=== PATIENT | male | born 1965 | race Caucasian/White ===

== ENCOUNTER 2016-04-21 10:13 | Outpatient (CLI) | payer OTHER | END 2016-04-21 10:14 | disposition home or self-care (01) | DX: R07.89 Other chest pain (principal); I44.7 Left bundle-branch block, unspecified; I51.7 Cardiomegaly ==

== ENCOUNTER 2016-05-27 15:36 | Outpatient (CLI) | payer OTHER | END 2016-05-27 15:37 | disposition home or self-care (01) | DX: I44.7 Left bundle-branch block, unspecified (principal); I44.0 Atrioventricular block, first degree; Q21.1 Atrial septal defect; R07.89 Other chest pain; I10 Essential (primary) hypertension; E78.5 Hyperlipidemia, unspecified; G47.33 Obstructive sleep apnea (adult) (pediatric); R00.2 Palpitations ==

== ENCOUNTER 2016-06-03 09:08 | Outpatient (CLI) | payer OTHER | END 2016-06-03 09:09 | disposition home or self-care (01) | DX: G47.10 Hypersomnia, unspecified (principal); G47.8 Other sleep disorders; R06.83 Snoring ==

== ENCOUNTER 2016-09-20 16:14 | Outpatient (CLI) | payer OTHER ==
--- NOTE | 2016-09-22 01:41 | MRI Report ---
EXAM: MRI LUMBAR SPINE WITHOUT CONTRAST EXAM DATE: 09/20/2016 05:33 PM. CLINICAL HISTORY: Subacute on chronic back pain, worse on the left involving the left buttock/hip. COMPARISON: Lumbar spine radiographs from 02/08/2015. TECHNIQUE: Multiplanar, multisequence T1-weighted and fluid-sensitive sequences of the lumbar spine f rom the lower half of T11 to S1 without contrast. Other: None. FINDINGS: Spinal Cord: The conus terminates at L1. No signal abnormality in the visualized spinal cord. Alignment: There is no spondylolisthesis. Bone Marrow: Five rra-obd-ouieboo lumbar vertebral bodies are confirmed on the radiographs. No abnorm al bone marrow edema is identified. Small chronic Schmorl's nodes are noted from T11-T12 through L3-L 4. Disk Levels/Facets: Abnormal edema is seen within the interspinous ligaments from L1-L2 through L5-S1, likely representin g bursitis. T11-T12: Unremarkable on sagittal images. T12-L1: There is mild disk bulge with mild bilateral facet arthropathy. However, there is no spinal c anal or foraminal stenosis. L1-L2: There is mild disk bulge with mild bilateral facet arthropathy. This results in mild spinal ca nal stenosis and mild bilateral foraminal narrowing. L2-L3: A disk bulge, ligamentum flavum infolding, facet arthropathy, and congenitally short pedicles result in moderate spinal canal stenosis. There is mild bilateral foraminal narrowing. Trace fluid is noted in the facet joints. L3-L4: A disk bulge is present with a superimposed large central protrusion measuring 6 x 15 mm (imag e 16, series 601) resulting in severe spinal canal stenosis. Bilateral facet arthropathy results in m ild bilateral foraminal narrowing. L4-L5: A disk bulge is present with central and right lateral annular fissures. There is moderate theresa ateral facet arthropathy with fluid in the bilateral facet joints. Superimposed ligamentum flavum inf olding results in mild spinal canal stenosis. There is moderate left and mild right foraminal narrowi ng. L5-S1: Mild bilateral facet arthropathy is present resulting in mild left foraminal narrowing. The ri ght foramen and spinal canal are patent. Musculature: Normal. No edema or fatty atrophy. Other: The visualized pelvic cavity is unremarkable. IMPRESSION: 1. Severe spinal canal stenosis at L3-L4 due to degenerative disk changes, facet arthropathy, and lig amentum flavum infolding. 2. Moderate spinal canal stenosis at L2-L3 due to similar-appearing degenerative changes. 3. Fluid in the bilateral facet joints at L2-L3 and L4-L5 may represent synovitis. 4. Edema in the interspinous ligaments throughout the lumbar spine is suggestive of bursitis. Comment: The following findings are so common in adults without low back pain that while we report th eir presence, they must be interpreted with caution and in the context of the clinical situation. (Re rachid Garrison et al, Spine 2001) Prevalence of findings in patients without low back pain: Disk degeneration (any evidence): 92% Disk desiccation/T2 signal loss: 83% Disk height loss: 56% Disk bulge: 64% Disk protrusion: 32% Annular tear/high intensity zone: 38% [facility] Referring Provider Line: [phone] SITE ID: [id number]
== END 2016-09-20 16:15 | disposition home or self-care (01) ==
LOC: DI 16:14
PROVIDERS: ATTEND Family Medicine
DX: M51.36 Other intervertebral disc degeneration, lumbar region (principal); M47.896 Other spondylosis, lumbar region; M48.06 Spinal stenosis, lumbar region; M25.48 Effusion, other site; R60.0 Localized edema; M54.5 Low back pain
CPT/HCPCS: 72148

== ENCOUNTER 2017-01-03 12:22 | Outpatient (CLI) | payer OTHER | END 2017-01-03 12:23 | disposition home or self-care (01) | LOC: RT 12:22 | PROVIDERS: ATTEND Orthopaedic Surgery | DX: Z01.818 Encounter for other preprocedural examination (principal) ==

== ENCOUNTER 2018-12-02 08:00 | Outpatient (CLI) | payer OTHER ==
[2018-12-02 12:38] LABS: BASOPHILS # (AUTO) 0.1 10^3/uL (0.0-0.1); EOSINOPHILS # (AUTO) 0.2 10^3/uL (0.0-0.7); EOSINOPHILS % (AUTO) 3.6 %; HGB - HEMOGLOBIN 14.9 g/dL (14.0-18.0); LYMPHOCYTES # (AUTO) 1.7 10^3/uL (1.5-3.5); LYMPHOCYTES % (AUTO) 33.1 %; MEAN CORPUSCULAR HEMOGLOBIN 32.3 pg (27.0-31.0); MEAN CORPUSCULAR HGB CONC 33.9 g/dL (32.0-36.0); MEAN CORPUSCULAR VOLUME 95.2 fL (80.0-94.0); MEAN PLATELET VOLUME 9.3 fL (7.4-11.4); MONOCYTES # (AUTO) 0.5 10^3/uL (0.0-1.0); MONOCYTES % (AUTO) 9.4 %; NEUTROPHILS # (AUTO) 2.6 10^3/uL (1.5-6.6); NEUTROPHILS % (AUTO) 52.5 %; PLT - PLATELET COUNT 288 10^3/uL (130-450); RED BLOOD COUNT 4.61 10^6/uL (4.70-6.10); RED CELL DISTRIBUTION WIDTH 12.4 % (12.0-15.0)
[2018-12-02 14:37] LABS: ALBUMIN 4.5 g/dL (3.2-5.5); ALBUMIN/GLOBULIN RATIO 1.6 (1.0-2.2); ALKALINE PHOSPHATASE 32 IU/L (42-121); ALT ALANINE AMINOTRANSFERASE 59 IU/L (10-60); AST ASPARTATE AMINOTRANSFERASE 39 IU/L (10-42); BILIRUBIN,TOTAL 1.1 mg/dL (0.2-1.0); BUN - BLOOD UREA NITROGEN 17 mg/dL (6-20); CALCIUM 9.4 mg/dL (8.5-10.3); CARBON DIOXIDE - CO2 27 mmol/L (21-32); CHLORIDE 103 mmol/L (101-111); CHOL/HDL RATIO 3.9 (<5.0); CHOLESTEROL 216 mg/dL; CREATININE 0.9 mg/dL (0.6-1.2); GFR - MDRD 89 (>89); GLUCOSE 84 mg/dL (70-100); HDL CHOLESTEROL 55 mg/dL; LDL CHOLESTEROL,CALCULATED 137 mg/dL; LDL/HDL RATIO 2.5 (<3.6); SODIUM 140 mmol/L (135-145); TOTAL PROTEIN 7.4 g/dL (6.7-8.2); VLDL CHOLESTEROL 24 mg/dL
== END 2018-12-02 23:59 | disposition home or self-care (01) ==
LOC: LAB.WCP 08:00
PROVIDERS: ATTEND Family Medicine
DX: I10 Essential (primary) hypertension (principal); E78.5 Hyperlipidemia, unspecified
CPT/HCPCS: 36415; 80053; 80061; 83721; 85025

== ENCOUNTER 2018-12-29 09:00 | Outpatient (CLI) | payer OTHER ==
--- NOTE | 2018-12-29 14:44 | XRAY Report ---
Reason: REACTIVE AIRWAY DISEASE Procedure Date: 12/29/2018 Accession Number: [id number] / [id number] Procedure: WCP - Chest 2 View X-Ray CPT Code: 12908 FULL RESULT: EXAM: CHEST RADIOGRAPHY EXAM DATE: 12/29/2018 02:28 PM. CLINICAL HISTORY: REACTIVE AIRWAY DISEASE. COMPARISON: None. TECHNIQUE: 2 views. FINDINGS: Lungs/Pleura: No focal opacities evident. No pleural effusion. No pneumothorax. No hyperinflation. Mediastinum: Heart and mediastinal contours are unremarkable. Other: None. IMPRESSION: Normal 2-view chest radiography. [facility]
== END 2018-12-29 23:59 | disposition home or self-care (01) ==
LOC: DI.WCP 09:00 → EDSTATUS 12:40 → DI.WCP 23:59
PROVIDERS: ATTEND Physician Assistant
DX: J45.998 Other asthma (principal)
CPT/HCPCS: 71046

== ENCOUNTER 2020-03-29 08:00 | Outpatient (CLI) | payer OTHER ==
[2020-03-29 13:33] LABS: BASOPHILS % (AUTO) 0.7 %; EOSINOPHILS # (AUTO) 0.2 10^3/uL (0.0-0.7); EOSINOPHILS % (AUTO) 4.1 %; HGB - HEMOGLOBIN 14.4 g/dL (14.0-18.0); LYMPHOCYTES # (AUTO) 1.9 10^3/uL (1.5-3.5); LYMPHOCYTES % (AUTO) 35.6 %; MEAN CORPUSCULAR HEMOGLOBIN 31.9 pg (27.0-31.0); MEAN CORPUSCULAR HGB CONC 33.6 g/dL (32.0-36.0); MEAN CORPUSCULAR VOLUME 94.7 fL (80.0-94.0); MEAN PLATELET VOLUME 9.3 fL (7.4-11.4); MONOCYTES # (AUTO) 0.5 10^3/uL (0.0-1.0); MONOCYTES % (AUTO) 8.8 %; NEUTROPHILS # (AUTO) 2.7 10^3/uL (1.5-6.6); NEUTROPHILS % (AUTO) 50.4 %; PLT - PLATELET COUNT 308 10^3/uL (130-450); RED BLOOD COUNT 4.52 10^6/uL (4.70-6.10); RED CELL DISTRIBUTION WIDTH 12.4 % (12.0-15.0); WHITE BLOOD COUNT 5.3 x10^3/uL (4.8-10.8)
[2020-03-29 13:55] LABS: ALBUMIN 4.2 g/dL (3.2-5.5); ALBUMIN/GLOBULIN RATIO 1.6 (1.0-2.2); ALKALINE PHOSPHATASE 37 IU/L (42-121); ALT ALANINE AMINOTRANSFERASE 55 IU/L (10-60); AST ASPARTATE AMINOTRANSFERASE 33 IU/L (10-42); BILIRUBIN,TOTAL 0.9 mg/dL (0.2-1.0); BUN - BLOOD UREA NITROGEN 16 mg/dL (6-20); CALCIUM 9.8 mg/dL (8.5-10.3); CARBON DIOXIDE - CO2 30 mmol/L (21-32); CHLORIDE 104 mmol/L (101-111); CHOL/HDL RATIO 3.6 (<5.0); CHOLESTEROL 208 mg/dL; CREATININE 0.8 mg/dL (0.6-1.2); GLUCOSE 96 mg/dL (70-100); HDL CHOLESTEROL 58 mg/dL; LDL CHOLESTEROL,CALCULATED 131 mg/dL; LDL/HDL RATIO 2.3 (<3.6); SODIUM 142 mmol/L (135-145); TOTAL PROTEIN 6.9 g/dL (6.7-8.2); VLDL CHOLESTEROL 19 mg/dL
== END 2020-03-29 23:59 | disposition home or self-care (01) ==
LOC: LAB.WCP 08:00
PROVIDERS: ATTEND Family Medicine
DX: I10 Essential (primary) hypertension (principal); E78.5 Hyperlipidemia, unspecified
CPT/HCPCS: 36415; 80053; 80061; 83721; 85025

== ENCOUNTER 2020-10-17 17:40 | Outpatient (CLI) | payer OTHER ==
--- NOTE | 2020-10-17 18:39 | XRAY Report ---
PROCEDURE: Hip w/Pelvis 1V RT INDICATIONS: R HIP PX TECHNIQUE: AP pelvis with lateral view of the right hip. COMPARISON: MRI 04/23/2010. FINDINGS: Bones: Postsurgical changes from left hip arthroplasty. No acute fractures or dislocations. Pelvic ring appears intact. No suspicious bony lesions. There is severe joint space narrowing at the super ior aspect of the right hip with subchondral sclerosis and marginal osteophyte formation. Degenerativ e changes are seen in the included spine. Irregularity of the right lesser trochanter may represent e nthesophyte formation or prior trauma. Soft tissues: The visualized bowel gas pattern is normal. Nonspecific calcification posterior to the femoral neck on lateral view could represent an intra-articular loose body. IMPRESSION: 1. Severe right hip osteoarthrosis. 2. Small calcification posterior to the femoral neck could represent an ossified intra-articular loo se body. 3. Status post left hip arthroplasty. Reviewed by: Hal Madrid MD on 10/17/2020 5:38 PM KITTY Approved by: Hal Madrid MD on 10/17/2020 5:38 PM AKEMBER Station ID: [id number]
--- NOTE | 2020-10-17 18:41 | XRAY Report ---
PROCEDURE: Knee 4 View RT INDICATIONS: R KNEE PX TECHNIQUE: 4 views of the right knee were acquired. COMPARISON: None. FINDINGS: Bones: No acute fractures or dislocations. No suspicious bony lesions. Severe joint space narrowin g in the medial femorotibial compartment with subchondral sclerosis and small marginal osteophytes. O steophytes also seen in the lateral and anterior compartments and there is moderate patellofemoral keaton int space narrowing. Enthesophytes are seen at the quadriceps tendon insertion. Soft tissues: No significant joint effusion. No suspicious soft tissue calcifications. IMPRESSION: No acute osseous abnormality. Tricompartment osteoarthrosis is worst and severe in the m edial femorotibial compartment. Reviewed by: Hal Madrid MD on 10/17/2020 5:40 PM KITTY Approved by: Hal Madrid MD on 10/17/2020 5:40 PM KITTY Station ID: [id number]
== END 2020-10-17 17:41 | disposition home or self-care (01) ==
LOC: DI.N 17:40
PROVIDERS: ATTEND Family Medicine
DX: M25.551 Pain in right hip (principal); M16.11 Unilateral primary osteoarthritis, right hip; Z96.642 Presence of left artificial hip joint; M17.11 Unilateral primary osteoarthritis, right knee

== ENCOUNTER 2021-05-16 07:25 | Outpatient (CLI) | payer OTHER ==
[2021-05-16 12:19] LABS: BASOPHILS % (AUTO) 0.9 %; EOSINOPHILS # (AUTO) 0.2 10^3/uL (0.0-0.7); EOSINOPHILS % (AUTO) 4.1 %; HCT - HEMATOCRIT 43.1 % (42.0-52.0); HGB - HEMOGLOBIN 15.3 g/dL (14.0-18.0); LYMPHOCYTES # (AUTO) 1.6 10^3/uL (1.5-3.5); LYMPHOCYTES % (AUTO) 36.1 %; MEAN CORPUSCULAR HEMOGLOBIN 31.9 pg (27.0-31.0); MEAN CORPUSCULAR HGB CONC 35.5 g/dL (32.0-36.0); MEAN CORPUSCULAR VOLUME 89.8 fL (80.0-94.0); MEAN PLATELET VOLUME 10.2 fL (7.4-11.4); MONOCYTES # (AUTO) 0.4 10^3/uL (0.0-1.0); MONOCYTES % (AUTO) 8.8 %; NEUTROPHILS # (AUTO) 2.2 10^3/uL (1.5-6.6); NEUTROPHILS % (AUTO) 49.9 %; PLT - PLATELET COUNT 319 10^3/uL (130-450); RED CELL DISTRIBUTION WIDTH 11.9 % (12.0-15.0); WHITE BLOOD COUNT 4.4 x10^3/uL (4.8-10.8)
[2021-05-16 13:45] LABS: ALBUMIN 4.5 g/dL (3.2-5.5); ALBUMIN/GLOBULIN RATIO 1.6 (1.0-2.2); ALKALINE PHOSPHATASE 38 IU/L (42-121); ALT ALANINE AMINOTRANSFERASE 40 IU/L (10-60); AST ASPARTATE AMINOTRANSFERASE 34 IU/L (10-42); BILIRUBIN,TOTAL 1.1 mg/dL (0.2-1.0); BUN - BLOOD UREA NITROGEN 9 mg/dL (6-20); CALCIUM 9.9 mg/dL (8.5-10.3); CARBON DIOXIDE - CO2 31 mmol/L (21-32); CHLORIDE 98 mmol/L (101-111); CHOLESTEROL 173 mg/dL; GFR - MDRD 78 (>89); GLUCOSE 92 mg/dL (70-100); HDL CHOLESTEROL 58 mg/dL; LDL CHOLESTEROL,CALCULATED 93 mg/dL; LDL/HDL RATIO 1.6 (<3.6); POTASSIUM 3.8 mmol/L (3.5-5.0); SODIUM 138 mmol/L (135-145); TOTAL PROTEIN 7.3 g/dL (6.7-8.2); TRIGLYCERIDES 108 mg/dL; VLDL CHOLESTEROL 22 mg/dL
== END 2021-05-16 07:26 | disposition home or self-care (01) ==
LOC: LAB.N 07:25
PROVIDERS: ATTEND Family Medicine
DX: I10 Essential (primary) hypertension (principal); E78.5 Hyperlipidemia, unspecified; Z12.5 Encounter for screening for malignant neoplasm of prostate
CPT/HCPCS: 36415; 80053; 80061; 83721; 84153; 85025

== ENCOUNTER 2022-03-04 08:01 | Outpatient (CLI) | payer OTHER ==
[2022-03-04 08:30] LABS: CALCIUM 9.9 mg/dL (8.5-10.3); POTASSIUM 4.1 mmol/L (3.5-5.0)
[2022-03-04 08:52] LABS: THYROID STIMULATING HORMONE 1.26 uIU/mL (0.34-5.60)
[2022-03-04 12:57] LABS: ESTIMATED AVERAGE GLUCOSE 105 mg/dL (70-100); HEMOGLOBIN A1c% 5.3 % (4.27-6.07)
== END 2022-03-04 08:02 | disposition home or self-care (01) ==
LOC: LAB 08:01
PROVIDERS: ATTEND Internal Medicine
DX: R73.01 Impaired fasting glucose (principal); F41.9 Anxiety disorder, unspecified; F32.A Depression, unspecified
CPT/HCPCS: 36415; 80048; 83036; 84443

== ENCOUNTER 2022-03-26 10:44 | Emergency (ER) | payer OTHER ==
[2022-03-26 11:02] VITALS: BP 148/89
[2022-03-26] MEDS ORDERED: lidocaine 1% 20 ML MDV SUBQ ONE (11:08)
[2022-03-26] MEDS ORDERED: BACITRACIN ZINC OINT 1 PACKET TOP STA (11:56)
[2022-03-26] MEDS ORDERED: TETANUS/DIPHTHERIA/PERTUSSIS 0.5 ML SYRINGE IM ONE (11:56)
--- NOTE | 2022-03-26 11:58 | ED Physician Documentation ---
PD HPI SKIN - Stated complaint Stated Complaint: L PINKY LAC - Chief complaint Chief Complaint: Laceration - History obtained from History obtained from: Patient - Additional information Additional information: The patient comes to the emergency department chief complaint of right small finger laceration. The patient states he was using a clean knife and cut himself. He denies any other injuries. He is not sure when his last tetanus shot was, or even whether its been in the last 10 years. Patient denies any problems moving his finger. Review of Systems Ten Systems: 10 systems reviewed and negative Constitutional: reports: Reviewed and negative Eyes: reports: Reviewed and negative Ears: reports: Reviewed and negative Nose: reports: Reviewed and negative Throat: reports: Reviewed and negative Cardiac: reports: Reviewed and negative Respiratory: reports: Reviewed and negative GI: reports: Reviewed and negative : reports: Reviewed and negative Skin: reports: Laceration (s) Musculoskeletal: reports: Reviewed and negative Neurologic: reports: Reviewed and negative Psychiatric: reports: Reviewed and negative Endocrine: reports: Reviewed and negative Immunocompromised: reports: Reviewed and negative PD PAST MEDICAL HISTORY - Allergies Allergies/Adverse Reactions: Allergies Allergy/AdvReac Type Severity Reaction Status Date / Time No Known Drug Allergies Allergy Verified 03/26/22 10:59 PD ED PE NORMAL - Vitals Vital signs reviewed: Yes - General General: Alert and oriented X 3, No acute distress, Well developed/nourished - HEENT HEENT: Atraumatic, PERRL, EOMI, Moist mucous membranes - Neck Neck: Supple, no meningeal sign - Cardiac Cardiac: Strong equal pulses - Respiratory Respiratory: No respiratory distress - Derm Derm: Normal color, Warm and dry, No rash, Other (1.5 cm laceration to the ulnar aspect of the dorsum of the patient's right small finger, overlying the lateralmost edge of the PIP joint. No tendon noted in the floor of wound.) - Extremities Extremities: No deformity, Other (Full range of motion right small finger; extension intact to resistance at the PIP and DIP joints.) - Neuro Neuro: Alert and oriented X 3 - Psych Psych: Normal mood, Normal affect Results - Vitals Vitals: Vital Signs - 24 hr 03/26/22 10:58 Temperature 36.7 C Heart Rate 62 Respiratory 16 Rate Blood Pressure 148/89 H O2 Saturation 99 Oxygen O2 Source Room air Procedures - Laceration (location) Right small finger Length in cm: 1.5 Wound type: Linear, Into subcut fat, Clean Neurovascular status: Sensory intact, Motor intact, Vascular intact Tendon involvement: Tendon intact Anesthesia: Lidocaine 1% Wound preparation: Hibiclens, Irrigated copiously NS, Wound explored, To the base Skin layer closure: Nylon, Interrupted, Size #-0 - enter number (5.0), Sutures - enter # (3) Other: Patient tolerated well, No complications, Neurovascular intact, Dressing applied, Tetanus booster given PD Medical Decision Making - ED course Complexity details: considered differential, d/w patient ED course: The patient's laceration was repaired as above. We have discussed wound care at home, the timeline for recheck and suture removal, and the usual indications for return, including signs of infection. The patient's tetanus has been updated today. Departure - Departure Disposition: Home, Self Care Clinical Impression: Laceration Condition: Stable Instructions: ED Laceration Ext Sutr Stap Tape Comments: Your wound has been repaired with 3 nonabsorbable sutures today. They will need to remain in place for 7 days. At that point in time, you should have the wound rechecked by medical professional and most likely, the sutures will be ready to be taken out. These are synthetic sutures, which have better tensile strength, but do not dissolve on their own, and as such, they should be taken out in a timely manner as described above. Otherwise, the scab and ultimately, your skin, will grow over them and this will cause problems. You should generally keep the wound dry, though you may let water and soap run over it when you are bathing or washing. However, please do not rub, scrub, or immerse the wound. This is to prevent infection. In general, rates an infection on the laceration such as this are very low; however, if you begin to notice redness or swelling spreading progressively away from the wound, or a streak going from the wound up your hand/arm, or if you notice that the wound has split open and become "mushy" then please have it rechecked. You may apply Neosporin or similar antibiotic ointment to the wound and keep it covered with a Band-Aid until it dries up and scabs over. After that, you may leave it open to the air. Your tetanus has been updated today. Your next tetanus shot will be due in 10 years.
== END 2022-03-26 12:21 | disposition home or self-care (01) ==
LOC: ED 10:44
DX: S61.216A Laceration without foreign body of right little finger without damage to nail, initial encounter (principal); W26.0XXA Contact with knife, initial encounter
CPT/HCPCS: 12001; 90471; 90715; 99283; A9270

== ENCOUNTER 2023-02-10 12:00 | Outpatient (CLI) | payer OTHER ==
--- NOTE | 2023-02-10 17:17 | XRAY Report ---
PROCEDURE: Knee 3 View BILAT INDICATIONS: OSTEOARTHRITIS(OA) KNEES BILATERAL TECHNIQUE: 3 views of the knee(s) were acquired. COMPARISON: 10/17/2020. FINDINGS: Bones: No fractures or dislocations. No suspicious bony lesions. Moderate to severe bilateral tri compartmental osteoarthritis is seen more notably in medial femoral tibial compartment of bilateral k nee joints worse on the right side. No significant patellar subluxation. Soft tissues: Small right knee joint effusion. No suspicious soft tissue calcifications or masses. IMPRESSION: 1. Right worse than left bilateral moderate to severe tricompartmental osteoarthritis more notably in medial femoral tibial compartment. No fracture or dislocation. No significant patellar subluxation. 2. Small right knee joint effusion. Reviewed by: Sinan Robledo MD on 02/10/2023 5:16 PM PST Approved by: Sinan Robledo MD on 02/10/2023 5:16 PM PST Station ID: [id number]
== END 2023-02-10 12:01 | disposition home or self-care (01) ==
LOC: DI 12:00
PROVIDERS: ATTEND Internal Medicine
DX: M17.0 Bilateral primary osteoarthritis of knee (principal); M25.461 Effusion, right knee

== ENCOUNTER 2023-07-02 11:01 | Outpatient (CLI) | payer OTHER ==
--- NOTE | 2023-07-02 11:52 | Sleep Patient Instructions ---
Sleep Center Visit Summary - Patient Visit Information Reason for Visit: Initial consultation - Patient Instructions Instructions Attached: Sleep Study, Sleep Study Home Monitor Additional Instructions: You will be completing a sleep study, either an in-lab polysomnography (PSG) or home sleep study (HST). You will follow-up in the sleep care office after the sleep study is completed to hear the results and talk about therapy, if needed. You will be called by our office staff to schedule this appointment, but you may contact us with any questions. - Clinic Information Contact: [facility] [address] [place] [address] [email or web address] T: [phone]
--- NOTE | 2023-07-02 12:01 | SLEEP CARE CONSULTATION ---
Information from patient questionnaire entered by Ishan Bone. I have reviewed and concur with the information entered by Ishan Bone. This document represents the service I personally performed and the decisions made by me, Santa Cooney ARNP. History of Present Illness Service Date and Time: 07/02/2023 1101 Reason for Visit: New patient Chief Complaint: reports: Insomnia, Unrefreshed sleep, Snoring, Observed pauses in breathing, Fatigue, Frequent awakenings at night Date of Onset: MANY YEARS Usual bedtime: 9181-1468 Time it takes to fall asleep: 1.5-2HRS Snores at night: Yes Observed to quit breathing while asleep: Yes Sleeps alone due to snoring: Yes Number of times waking at night: 3-4 Reasons for waking at night: reports: Snoring (initially at night only), Gasping for air (feeling like he needs more air, few times in last year), Pain, Bathroom . denies: Choking Toss, Turn, or Twitch while sleeping: Yes Recalls having dreams: Yes Usually gets out of bed at: 0600 Feels refreshed in the morning: No Morning headache: Yes (most days; last he has coffee in AM) Sleepy or fatigued during the day: Yes Ever fallen asleep while driving: No Takes day naps: No Additional HPI information: I had the pleasure of seeing JILLIAN MARTINEZ today regarding the possibility of him having a sleep disorder. His current complaints are fatigue, frequent night awakenings, insomnia, observed pauses in breathing, snoring and unrefreshed sleep. He was last seen here in 2017 but did not complete sleep study. He says he needs a right hip replacement and his surgeon is concerned about his snoring. He also did a stress test ordered by his primary provider which sent him to cardiology to find a congenital heart defect. He is wanting to have things checked out before surgery. He says that he has trouble falling asleep because of his pain and unable to get comfortable, sometimes up to 1.5-2 hours. He is waking up frequently at night. He does not normally wake up feeling refreshed. 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 Patient is and lives in [place]. Have you smoked in the past 12 months: No Alcohol use: Yes Alcohol amount and frequency: 2-3 COUPLE DAYS A WEEK Caffeine use: Yes Caffeine amount and frequency: DAILY Family History Family history of sleep disordered breathing: Yes Family Hx Sleep Apnea: Sibling: Snoring, Sleep apnea - Treated Allergies and Home Medications Known drug allergies: No Drug allergies reviewed: Yes Home medication list reviewed: Yes (as listed) Allergy and home medication list: Allergies No Known Drug Allergies Allergy (Verified 06/30/23 09:34) Home Medications Medication Instructions Recorded Confirmed Last Taken Type ALPRAZolam [Xanax] See Rx Instructions .ROUTE .COMPLEX 07/02/23 07/02/23 Unknown History Amitriptyline [Elavil] See Rx Instructions .ROUTE .COMPLEX 07/02/23 07/02/23 Unknown History Cholecalciferol (Vitamin D3) See Rx Instructions .ROUTE .COMPLEX 07/02/23 07/02/23 Unknown History [Vitamin D3] Gabapentin [Neurontin] See Rx Instructions .ROUTE .COMPLEX 07/02/23 07/02/23 Unknown History Losartan Potassium See Rx Instructions .ROUTE .COMPLEX 07/02/23 07/02/23 Unknown History Meloxicam See Rx Instructions .ROUTE .COMPLEX 07/02/23 07/02/23 Unknown History Oxycodone HCl/Acetaminophen See Rx Instructions .ROUTE .COMPLEX 07/02/23 07/02/23 Unknown History [Oxycodone-Acetaminophen 5-325] Turmeric See Rx Instructions .ROUTE .COMPLEX 07/02/23 07/02/23 Unknown History hydroCHLOROthiazide [Hydrodiuril] See Rx Instructions .ROUTE .COMPLEX 07/02/23 07/02/23 Unknown History Review of Systems Weight gain over past 5 years: 50 Weight loss over past 5 years: 25 Cardiovascular: reports: high blood pressure Respiratory: reports: wheeze Gastrointestinal: denies: heartburn Neurological: denies: headaches Psychiatric: reports: anxiety Ear/Nose/Throat: reports: wisdom teeth removed. denies: tonsillectomy Musculoskeletal: reports: joint pain Physical Exam Vital signs obtained and entered by: ISHAN Viveros MA Blood Pressure: 167/94 (LEFT ARM) Cuff size: long Heart Rate: 66 O2 Saturation: 97 Height: 5 ft 8 in Weight: 270 lb Body Mass Index: 41.0 BMI Classification: Morbidly Obese Neck circumference: 17.75 Nostrils: patent to airflow Mouth and throat: narrow oropharynx Soft palate: long Hard palate: normal Uvula: normal Uvula visualization: 25% Mallampati Class III Tongue: enlarged in size with teeth ayala on lateral edges Tonsils: 1+ Neck: normal w/o lymphadenopathy or thyromegaly Heart: regular rate and rhythm Lungs: clear bilaterally Impression and Plan 1. Suspected Obstructive Sleep Apnea-Hypopnea Syndrome, as suggested by a history of loud and irregular snoring, observed cessation of breath while asleep, gasping or choking in sleep, morning headache, frequent awakening during the night, unrefreshed sleep, cognitive impairment, and excessive daytime sleepiness. Narrow oropharynx and obesity are common predisposing factors for obstructive sleep apnea-hypopnea syndrome. I recommend proceeding to polysomnography to confirm the diagnosis and to assess severity. If the patient has significant sleep disordered breathing, a manual CPAP titration study will also be performed to find the optimal treatment pressure. I informed the patient of what the sleep studies involve and after some discussion, obtained agreement to proceed. The pathophysiology of obstructive sleep apnea-hypopnea syndrome was discussed with the patient and health risks of cardiovascular and cerebrovascular disease if not treated. 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 Patient agreed to plan. * Schedule polysomnography * Avoid long distance driving or driving when feeling sleepy. * Avoid alcohol, sedative and muscle relaxant around bedtime. * Attempt to lose weight. * Review instructions provided by trained office staff on how to prepare for the sleep study. * Return for follow-up after sleep study completed. Counseling Topics: Weight loss health impact Follow up with Sleep Care in: other (after sleep study) Plan: PSG/HST Visit Type: In Office Time Spent with Patient (minutes): 34 Provider Statement: I spent 100% of the Face to Face Visit with the patient with greater than 50% spent counseling the patient and coordination of care.
[2023-07-02 12:03] VITALS: BP 167/94; O2SAT 97
== END 2023-07-02 11:02 | disposition home or self-care (01) ==
LOC: SC 11:01
PROVIDERS: ATTEND Nurse Practitioner Family
DX: G47.10 Hypersomnia, unspecified (principal); R06.89 Other abnormalities of breathing; R51.9 Headache, unspecified; G47.8 Other sleep disorders; R06.83 Snoring
CPT/HCPCS: 99203; 99212

== ENCOUNTER 2023-07-15 20:42 | Outpatient (CLI) | payer OTHER | END 2023-07-15 20:43 | disposition home or self-care (01) | LOC: SC 20:42 | PROVIDERS: ATTEND Nurse Practitioner Family | DX: G47.33 Obstructive sleep apnea (adult) (pediatric) (principal); G47.61 Periodic limb movement disorder; E66.01 Morbid (severe) obesity due to excess calories; Z68.41 Body mass index [BMI] 40.0-44.9, adult | CPT/HCPCS: 95810 ==

== ENCOUNTER 2023-07-23 13:26 | Outpatient (CLI) | payer OTHER ==
--- NOTE | 2023-07-23 14:01 | SLEEP CARE CONSULTATION ---
Information from patient questionnaire entered by Sonia Bone. I have reviewed and concur with the information entered by Sonia Bone. This document represents the service I personally performed and the decisions made by me, Santa Cooney ARNP. History of Present Illness Service Date and Time: 07/23/2023 1326 Initial Rogerson Sleepiness Scale score: 13 (07/02/23) Current Rogerson Sleepiness Scale score: 6 (07/23/23) Additional HPI information: JILLIAN MARTINEZ returns for follow up and results of the recently performed polysomnography. The sleep study showed moderate obstructive sleep apnea with an average AHI of 17.8 and nora oxygen saturation of 73%. He had moderate PLMs not contributing to sleep fragmentation. I explained the pathophysiology behind obstructive sleep apnea. We then spent quite a bit of time discussing different treatment options. For mild obstructive sleep apnea, surgery and oral appliance are alternatives to nasal CPAP therapy but in moderate or severe cases, nasal CPAP is the most effective and reliable treatment. I reviewed the impact of weight changes on sleep apnea and strongly recommended losing weight. After some discussion, the patient opted to go with the nasal CPAP therapy. Nasal autoCPAP set at 4-15 cmH20 will be ordered with rationale explained. A manual titration study will be ordered if unable to find optimal pressure with office adjustments. I explained how CPAP machine works and what to expect when using the machine. Using CPAP every night in order to get used to it was emphasized. Patient advised to put CPAP mask on before getting into bed so as not to fall asleep without CPAP. To assist acclimation to CPAP use, it could also be used for a short time during day while reading or watching TV. The patient was instructed to call the CPAP supplier to discuss any mechanical problem that may occur. If the mask given is uncomfortable or is difficult to keep on through the night even with adjustment, contact the CPAP supplier as many will replace with another mask style if notified before 30 days. If snoring or perceives is not getting enough air or too much air from the machine, notify this office. Patient counseled not drink alcohol less than 4 hours befo re bedtime as it can increase snoring and apnea. Patient was cautioned about risks of drowsy driving until sleepiness symptoms resolve. Patient denies drowsy driving. Sleep Study - Results Type of Sleep Study: Polysomnography (COMPLETED 07/15/23) Polysomnography/Home Sleep Study results: IMPRESSION: The quality of the study is good. The patient had minimally reduced sleep efficiency. The sleep architecture was abnormal for sleep fragmentation and reduced amount of time spent in REM and slow wave sleep (N3). Respiratory monitoring showed moderate obstructive sleep apnea-hypopnea (AHI = 17.8) associated with frequent arousals, oxyhemoglobin desaturation and moderate hypoxia (nora oxygen saturation of 73%). Baseline oxygen saturation was normal. The respiratory events occurred mainly during REM sleep (supine AHI = 2.3; nonsupine = 18.92). Snore was moderate in intensity. There was moderate periodic leg movement of sleep, not contributing to the sleep fragmentation. Cardiac rhythm was normal sinus rhythm without significant arrhythmia. No abnormal behavior (parasomnia) observed during the night. Allergies and Home Medications Known drug allergies: No Drug allergies reviewed: Yes Home medication list reviewed: Yes (no changes) Allergy and home medication list: Allergies No Known Drug Allergies Allergy (Verified 07/22/23 09:22) Review of Systems Review of systems same as previous: Yes (NO CHANGE) Physical Exam Vital signs obtained and entered by: SONIA Viveros MA Blood Pressure: 154/94 (RIGHT ARM) Cuff size: long Heart Rate: 78 O2 Saturation: 96 Height: 5 ft 8 in Weight: 269 lb 12.8 oz Body Mass Index: 41.0 BMI Classification: Morbidly Obese Impression and Plan 1. Obstructive Sleep Apnea-Hypopnea Syndrome, moderate, with lowest oxygen saturation of 73%. Obviously this is the cause of the patients symptoms of unrefreshed sleep, and excessive daytime sleepiness. Positive pressure therapy could benefit hypertension and anxiety. As mentioned above, the patient will be started on nasal autoCPAP therapy with pressure set at 4-15 cmH2O. A manual titration study will be completed if unable to find optimal treatment pressure with office adjustments. Compliance guidelines also reviewed. A copy of compliance guidelines will be given for reference at check out. 2. Hypoxemia, moderate, with a nora oxygen saturation of 73% and 11.9 minutes spent under 90%. The baseline oxygen saturation was normal with an average oxygen saturation of 94%. 3. Periodic limb movement, moderate, that did not fragment patients sleep. Periodic limb movement of sleep (PLMS) is characterized by episodes of repetitive limb movements that occur during sleep and usually involve the lower limbs. The etiology is unknown. Sleep hygiene methods can also improve sleep as well as lifestyle changes such as regular exercise. Patient was advised that no treatment is needed at this time. If symptoms increase, then further evaluation is indicated. 4. Obesity, unspecified. Currently patients BMI is 41. Obesity increases the r isk of apnea, CPAP pressure requirements and overall health risks especially cardiovascular and diabetes. Thus patient is advised to lose weight. * Nasal auto CPAP therapy, pressure at 4-15 cm H2O. * Attempt to lose weight. * Avoid alcohol consumption near bedtime. * Avoid supine sleep until using CPAP. * The patient is again cautioned about driving until sleepiness completely resolves. * Return one month after CPAP obtained. I will assess response to therapy and compliance at that time. Counseling Topics: Sleeping position, Weight loss health impact Prescriptions: Auto CPAP Visit Type: In Office Time Spent with Patient (minutes): 25 Provider Statement: I spent 100% of the Face to Face Visit with the patient with greater than 50% spent counseling the patient and coordination of care.
--- NOTE | 2023-07-23 14:02 | Sleep Patient Instructions ---
Sleep Center Visit Summary - Patient Visit Information Reason for Visit: Sleep study follow-up - Patient Instructions Instructions Attached: CPAP Additional Instructions: You are being started on CPAP therapy with pressure setting at 4-15 cmH2O. You will need to call the sleep care office to set up your follow up once you have your CPAP machine to check compliance and response to therapy at that time. You may call the office with any concerns about pressure feeling too low or too much for adjustment, if needed. You should contact DME supplier for any questions or concerns about mask or equipment. Please call office to schedule a follow up appointment in the sleep care office one month after obtaining new device. - Clinic Information Contact: [facility] [address] [place] [address] [email or web address] T: [phone]
[2023-07-23 14:10] VITALS: BP 154/94; O2SAT 96
== END 2023-07-23 13:27 | disposition home or self-care (01) ==
LOC: SC 13:26
PROVIDERS: ATTEND Nurse Practitioner Family
DX: G47.33 Obstructive sleep apnea (adult) (pediatric) (principal); R09.02 Hypoxemia; G47.61 Periodic limb movement disorder; E66.01 Morbid (severe) obesity due to excess calories; Z68.41 Body mass index [BMI] 40.0-44.9, adult
CPT/HCPCS: 99212; 99213

== ENCOUNTER 2023-09-17 07:46 | Outpatient (CLI) | payer OTHER ==
[2023-09-17 07:58] LABS: BASOPHILS # (AUTO) 0.1 10^3/uL (0.0-0.1); BASOPHILS % (AUTO) 0.9 %; EOSINOPHILS # (AUTO) 0.3 10^3/uL (0.0-0.7); EOSINOPHILS % (AUTO) 4.7 %; HCT - HEMATOCRIT 41.7 % (42.0-52.0); HGB - HEMOGLOBIN 14.2 g/dL (14.0-18.0); LYMPHOCYTES # (AUTO) 1.7 10^3/uL (1.5-3.5); LYMPHOCYTES % (AUTO) 31.6 %; MEAN CORPUSCULAR HEMOGLOBIN 31.3 pg (27.0-31.0); MEAN CORPUSCULAR HGB CONC 34.1 g/dL (32.0-36.0); MEAN CORPUSCULAR VOLUME 92.1 fL (80.0-94.0); MEAN PLATELET VOLUME 8.8 fL (7.4-11.4); MONOCYTES # (AUTO) 0.4 10^3/uL (0.0-1.0); MONOCYTES % (AUTO) 7.5 %; NEUTROPHILS % (AUTO) 55.1 %; PLT - PLATELET COUNT 279 10^3/uL (130-450); RED BLOOD COUNT 4.53 10^6/uL (4.70-6.10); RED CELL DISTRIBUTION WIDTH 12.2 % (12.0-15.0); WHITE BLOOD COUNT 5.5 x10^3/uL (4.8-10.8)
[2023-09-17 08:15] LABS: CREATININE,URINE 162.7 mg/dL
[2023-09-17 08:16] LABS: ALBUMIN 4.5 g/dL (3.2-5.5); ALKALINE PHOSPHATASE 38 IU/L (42-121); ALT ALANINE AMINOTRANSFERASE 40 IU/L (10-60); AST ASPARTATE AMINOTRANSFERASE 23 IU/L (10-42); BILIRUBIN,TOTAL 0.6 mg/dL (0.2-1.0); BUN - BLOOD UREA NITROGEN 15 mg/dL (6-20); CALCIUM 9.8 mg/dL (8.5-10.3); CARBON DIOXIDE - CO2 32 mmol/L (21-32); CHLORIDE 104 mmol/L (101-111); CHOL/HDL RATIO 3.5 (<5.0); CHOLESTEROL 194 mg/dL; CREATININE 0.8 mg/dL (0.6-1.3); GFR - MDRD 100 (>89); GLUCOSE 102 mg/dL (74-104); HDL CHOLESTEROL 56 mg/dL; LDL CHOLESTEROL,CALCULATED 114 mg/dL; POTASSIUM 3.8 mmol/L (3.5-4.5); SODIUM 140 mmol/L (135-145); TOTAL PROTEIN 6.7 g/dL (6.4-8.9); TRIGLYCERIDES 119 mg/dL (48-352); VLDL CHOLESTEROL 24 mg/dL
[2023-09-17 08:19] LABS: MICROALBUMIN,URINE < 0.7 mg/dL
[2023-09-17 08:29] LABS: THYROID STIMULATING HORMONE 0.98 uIU/mL (0.34-5.60)
[2023-09-17 08:35] LABS: PROLACTIN 15.42 ng/mL
[2023-09-17 09:27] LABS: ESTIMATED AVERAGE GLUCOSE 100 mg/dL (70-100); HEMOGLOBIN A1c% 5.1 % (4.27-6.07)
== END 2023-09-17 07:47 | disposition home or self-care (01) ==
LOC: LAB 07:46
PROVIDERS: ATTEND Internal Medicine
DX: I10 Essential (primary) hypertension (principal); Z13.220 Encounter for screening for lipoid disorders; R73.01 Impaired fasting glucose; E29.1 Testicular hypofunction; Z12.5 Encounter for screening for malignant neoplasm of prostate; F41.9 Anxiety disorder, unspecified; F32.A Depression, unspecified
CPT/HCPCS: 36415; 80053; 80061; 82043; 82570; 83002; 83036; 83721; 84146; 84153; 84403; 84443; 85025

== ENCOUNTER 2023-09-29 14:54 | Outpatient (CLI) | payer OTHER ==
--- NOTE | 2023-09-29 15:35 | Sleep Patient Instructions ---
Sleep Center Visit Summary - Patient Visit Information Reason for Visit: First compliance for CPAP therapy - Patient Instructions Additional Instructions: You were here for follow up of CPAP therapy. You will be continued on CPAP therapy with pressure at 9-11 cmH2O. Please let us know if the pressure change is uncomfortable and we can make further adjustments of the pressure. You should follow up with sleep care in 1-2 months. You may contact us sooner for any questions or concerns. - Clinic Information Contact: [facility] [address] [place] [address] [email or web address] T: [phone]
--- NOTE | 2023-09-29 15:39 | SLEEP CARE CONSULTATION ---
Information from patient questionnaire entered by Sonia Bone. I have reviewed and concur with the information entered by Sonia Bone. This document represents the service I personally performed and the decisions made by me, Santa Cooney ARNP. History of Present Illness Service Date and Time: 09/29/2023 145 Previous diagnosis: Moderate, Obstructive Sleep Apnea-Hypopnea Syndrome AHI: 17.8 (on 07/15/23) Reason for follow up: first compliance Accompanied by: Spouse (Oksana) Equipment type: CPAP (RESMED NEED MACHINE) Equipment obtained from: [employer] ([employer]) Mask style: Nasal (over the nose) Mask brand: Resmed (AirFit [id number]) Backup mask available: No Last cushion change: rotating through sizes to determine good fit Type of Sleep Study: Polysomnography (COMPLETED 07/15/23) HPI additional information: JILLIAN MARTINEZ was diagnosed to have moderate, AHI 17.8, obstructive sleep apnea- hypopnea syndrome and returned today for CPAP therapy first compliance follow- up. Sleep Study - Results Type of Sleep Study: Polysomnography (COMPLETED 07/15/23) CPAP Compliance Data - Data Reviewed with Patient Average duration of nightly device use: 6 hours 44 minutes Compliance rate %: 91 (45/45 days used) Current pressure setting (cmH2O): 4-15 (median 6.7, avg 9.4, max 10.7) Average residual AHI: 1.2 Central apnea: 0.1 Obstructive apnea: 0.6 Hypopnea: 0.4 Average large leak: 2.9 L/min Subjective Patient concerns: reports: mask discomfort (mild), air blowing in eyes, mask leak noise (little), condensation in mask/hose. denies: aerophagia, nasal congestion, dry mouth, nose, throat, epistaxis Observed to snore while using device: No Current pressure setting perceived as: comfortable On therapy, patient: reports: sleeping better, awakening more refreshed, being more awake and alert during the day, more rested overall. denies: drowsiness while driving Initial Bergholz Sleepiness Scale score: 13 (07/02/23) Current Bergholz Sleepiness Scale score: 6 Allergies and Home Medications Known drug allergies: No Drug allergies reviewed: Yes Home medication list reviewed: Yes (Aspirin 81 mg) Allergy and home medication list: Allergies No Known Drug Allergies Allergy (Verified 09/28/23 10:20) Review of Systems Review of systems same as previous: No (right hip arthroplasty, 09/21/23) Physical Exam Vital signs obtained and entered by: SANTA DUBON Blood Pressure: 126/83 Cuff size: long (right arm) Heart Rate: 85 Height: 97 ft Weight: 363 lb 6.4 oz Body Mass Index: 0.1 BMI Classification: Underweight Impression and Plan 1. Obstructive Sleep Apnea-Hypopnea Syndrome, moderate, with good treatment compliance and good apnea control. On CPAP therapy, the patient has better sleep quality and is more rested overall. He has significant improvement in his sleep apnea and is satisfied with therapy. The patients pressure will be changed to autoCPAP 9-11 cmH20 to reflect pressure being used. Patient advised to contact me if pressure change is uncomfortable so that it can be adjusted. Goals for apnea control discussed. He has been having a few difficulties with the mask, finding the right mask cushion fit. He asked about the nasal pillows and I fitted him to a [employer] in the office today. He thinks he might like this mask better. I sent him home a sample to try and if he likes it he will let me know and we will change him to a nasal pillows mask. Patient's apnea severity and rationale for treatment to reduce apnea, improve sleep quality and reduce cardiovascular and cerebrovascular events was reviewed. I also reviewed the benefit of consistent device use of CPAP for hypertension, anxiety. 2. Obesity, unspecified. Currently patients BMI is 55.2. Obesity increases the risk of apnea, CPAP pressure requirements and overall health risks especially cardiovascular and diabetes. Thus patient is advised to lose weight. * Change auto CPAP pressure to 9-11 cmH2O * Notify me if snoring with mask or feeling that the pressure is too much or too little * Attempt to lose weight * Call this office if any problems using CPAP * Return for follow up in 1-2 months, or sooner if concerns arise Adjust device pressure to (cmH2O): 9-11 Mask provided: Yes Counseling Topics: Weight loss health impact Follow up with Sleep Care in: 1-2 months Visit Type: In Office Time Spent with Patient (minutes): 32 Provider Statement: I spent 100% of the Face to Face Visit with the patient with greater than 50% spent counseling the patient and coordination of care.
[2023-09-29 15:48] VITALS: BP 126/83
== END 2023-09-29 14:55 | disposition home or self-care (01) ==
LOC: SC 14:54
PROVIDERS: ATTEND Nurse Practitioner Family
DX: G47.33 Obstructive sleep apnea (adult) (pediatric) (principal); E66.9 Obesity, unspecified; Z68.43 Body mass index [BMI] 50.0-59.9, adult
CPT/HCPCS: 99212; 99213

== ENCOUNTER 2023-11-18 16:52 | Outpatient (CLI) | payer OTHER ==
--- NOTE | 2023-11-18 17:01 | Sleep Patient Instructions ---
Sleep Center Visit Summary - Patient Visit Information Reason for Visit: 6-week follow-up for PAP therapy - Patient Instructions Additional Instructions: You were here for follow up of CPAP therapy. You will be continued on CPAP therapy with pressure at 9-11 cmH2O. You should follow up with sleep care in 3 months. You may contact us sooner for any questions or concerns. - Clinic Information Contact: [facility] [address] [place] [id number] [email or web address] T: [phone]
--- NOTE | 2023-11-18 17:08 | SLEEP CARE CONSULTATION ---
Information from patient questionnaire entered by Sonia Bone. I have reviewed and concur with the information entered by Sonia Bone. This document represents the service I personally performed and the decisions made by , Santa Cooney ARNP. History of Present Illness Service Date and Time: 11/18/2023 1620 Previous diagnosis: Moderate, Obstructive Sleep Apnea-Hypopnea Syndrome AHI: 17.8 (on 07/15/23) Reason for follow up: other (6 WEEK F/U) Equipment type: CPAP (RESMED Airsense 11, s/u 08/05/2023; NEED MACHINE) Equipment obtained from: [employer] (getting supplies) Mask style: Nasal (over the nose) Backup mask available: Yes (other mask) Last cushion change: 3 days ago Type of Sleep Study: Polysomnography (COMPLETED 07/15/23) HPI additional information: JILLIAN MARTINEZ was diagnosed to have moderate, AHI 17.8, obstructive sleep apnea- hypopnea syndrome and returned today for CPAP therapy six weeks after pressure change follow-up. Sleep Study - Results Type of Sleep Study: Polysomnography (COMPLETED 07/15/23) CPAP Compliance Data - Data Reviewed with Patient Average duration of nightly device use: 5 hours 53 minutes Compliance rate %: 68 (08/16/23-09/28/23; 77% in last 30 days) Current pressure setting (cmH2O): 9-11 Average residual AHI: 1.2 Central apnea: 0.2 Obstructive apnea: 0.5 Hypopnea: 0.2 Average large leak: 8.3 L/min Subjective Missed days of use due to: reports: travel Patient concerns: reports: mask discomfort, air blowing in eyes, mask leak noise. denies: aerophagia, condensation in mask/hose, nasal congestion, dry mouth, nose, throat, epistaxis Observed to snore while using device: No Current pressure setting perceived as: comfortable On therapy, patient: reports: sleeping better, awakening more refreshed, being more awake and alert during the day, more rested overall. denies: drowsiness while driving Initial Termo Sleepiness Scale score: 13 (07/02/23) Current Termo Sleepiness Scale score: 4 (11/18/23) Allergies and Home Medications Known drug allergies: No Drug allergies reviewed: Yes Home medication list reviewed: Yes (testosterone 1%) Allergy and home medication list: Allergies No Known Drug Allergies Allergy (Verified 11/18/23 16:21) Review of Systems Review of systems same as previous: No (LOW TESTOSTERONE) Physical Exam Vital signs obtained and entered by: SONIA Viveros MA Blood Pressure: 168/94 (LEFT ARM) Cuff size: long Heart Rate: 55 O2 Saturation: 98 Height: 5 ft 8 in Weight: 276 lb Body Mass Index: 41.9 BMI Classification: Morbidly Obese Impression and Plan 1. Obstructive Sleep Apnea-Hypopnea Syndrome, moderate, with good treatment compliance and good apnea control. On CPAP therapy, the patient has better sleep quality and is more rested overall. We are again having difficulty getting his data. His modem on the machine does not seem to be transmitting reliably. He sometimes does not get his information from the night on his phone [employer], [employer]. Using an SD card, we were able to obtain his data. I am going to write an order to have his machine serviced to check why transfer data transmission is not being reliable. Patient's apnea severity and rationale for treatment to reduce apnea, improve sleep quality and reduce cardiovascular and cerebrovascular events was reviewed. I also reviewed the benefit of consistent device use of CPAP for hypertension, anxiety. 2. Obesity, unspecified. Currently patients BMI is 41.9. Obesity increases the risk of apnea, CPAP pressure requirements and overall health risks especially cardiovascular and diabetes. Thus patient is advised to lose weight. 3. Elevated blood pressure reading in patient with hypertension. His blood pressure was elevated at 168/94 in the office today. He states he is taking his blood pressure medication as prescribed. He did recently start testosterone. He is feeling well today. He is to follow-up with his primary provider for his elevated blood pressure. * Continue auto CPAP pressure at 9-11 cmH2O * Service machine for issue with data transmission * Notify me if snoring with mask or feeling that the pressure is too much or too little * Attempt to lose weight * Call this office if any problems using CPAP * Return for follow up in 3 months, or sooner if concerns arise Continue with device pressure at (cmH2O): 9-11 Counseling Topics: Spare mask, Weight loss health impact Prescriptions: Other (machine service for possible modem malfunctioning) Follow up with Sleep Care in: 3 months Visit Type: In Office Time Spent with Patient (minutes): 26 Provider Statement: I spent 100% of the Face to Face Visit with the patient with greater than 50% spent counseling the patient and coordination of care.
[2023-11-18 17:16] VITALS: BP 168/94; O2SAT 98
== END 2023-11-18 16:53 | disposition home or self-care (01) ==
LOC: SC 16:52
PROVIDERS: ATTEND Nurse Practitioner Family
DX: G47.33 Obstructive sleep apnea (adult) (pediatric) (principal); E66.01 Morbid (severe) obesity due to excess calories; Z68.41 Body mass index [BMI] 40.0-44.9, adult; I10 Essential (primary) hypertension
CPT/HCPCS: 99212; 99213